=== PATIENT | female | born 2000 | race Caucasian/White ===

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

== ENCOUNTER → 2020-10-30 | Outpatient (CLI) | payer BC | LOC: COL.RAD 09:14 | DX: R10.31 Right lower quadrant pain (principal); R10.2 Pelvic and perineal pain; Z97.5 Presence of (intrauterine) contraceptive device ==

== ENCOUNTER 2020-11-05 19:19 | Emergency (ER) | payer BC ==
[~2020-11-05] VITALS: Ht 154.9 cm; Wt 56.8 kg
[2020-11-05 21:51] VITALS: BP 107/68; PULSE 58; TEMP 98
== END 2020-11-05 21:51 | disposition home or self-care (01) ==
LOC: COL.ER 19:19
DX: S81.812A Laceration without foreign body, left lower leg, initial encounter (principal); W22.8XXA Striking against or struck by other objects, initial encounter; Y93.52 Activity, horseback riding